=== PATIENT | male | born 1960 | race Caucasian/White ===

== ENCOUNTER 2024-11-16 16:10 | Emergency (ER) | payer OTHER, BC ==
[~2024-11-16] VITALS: Ht 182.9 cm; Wt 95.2 kg
[2024-11-16] MEDS ORDERED: LISINOPRIL10 MG PO (16:26)
[2024-11-16] MEDS ORDERED: SUBOXONE 8 MG-1 EAC1 SL (16:27)
[2024-11-16] MEDS ORDERED: HYDROXYZINE PAM25 MG PO (16:27)
[2024-11-16] MEDS ORDERED: DIPHTH,PERTUSS(ACELL),TET VAC 0.5 ML SYRINGE IM ONE (16:45)
[2024-11-16] MEDS ORDERED: HYDROCODONE/ACETA 5/325 TAB PO ONE (17:45)
[2024-11-16] MEDS ORDERED: CEPHALEXIN MONOHYDRATE 500 MG CAP PO ONE (17:45)
[2024-11-16] MEDS ORDERED: HYDROCODON-ACE1 EA10 PO (17:54)
[2024-11-16] MEDS ORDERED: CEPHALEXIN500 M1 PO (17:54)
[2024-11-16 18:20] VITALS: BP 159/102
== END 2024-11-16 18:20 | disposition home or self-care (01) ==
LOC: ED 16:10
DX: L08.9 Local infection of the skin and subcutaneous tissue, unspecified (principal); I10 Essential (primary) hypertension; Z79.899 Other long term (current) drug therapy
CPT/HCPCS: 73130; 87070; 87075; 87186; 87205; 90471; 90715; 99283-25; A9270